=== PATIENT | female | born 1970 | race Caucasian/White ===

== ENCOUNTER → 2016-10-17 | Outpatient (CLI) | payer MEDICARE ==
[~2016-10-17] MED LIST: ALBUTEROL17 GM INH; AUGMENTIN875 MG PO; BICARSIM80 MG PO; COLACE PO; DEPAKOTE PO; DOLOBID500 MG PO; EXCEDRIN EXTRA1 EAC3 PO; EXCEDRIN MIGRAI1 TA2 PO; FLEXERIL10 MG PO; NORCO 10/325 TA1 TAB PO; ORUDIS75 M1 PO; REMERON PO; ROBAXIN PO; SYMBICORT 160/4.6 G1 INH; TRAMADOL HCL50 M2 PO; VISTARIL PO
--- NOTE | ~2016-10-17 | EKG ---
PATIENT: DILCIA WAN UNIT #: [id number] Ventricular Rate: 84 BPM Atrial Rate: 84 BPM P-R Interval: 150 ms QRS Duration: 86 ms Q-T Interval: 372 ms QTC Calculation(Bezet): 439 ms P [place]: 71 degrees Calculated R [place]: 54 degrees Calculated T [place]: 36 degrees Diagnosis Line: Normal sinus rhythm Diagnosis Line: Low voltage QRS Diagnosis Line: Otherwise normal ECG Diagnosis Line: When compared with ECG of 04-JUN-2014 02:38, Diagnosis Line: No significant change was found Diagnosis Line: Confirmed by JOSIANE ROJO MD ([id number]) on 10/20/2016 Diagnosis Line: 10:46:17 PM INTERPRETING MD: ALIA ZEPEDA
[2016-10-17 14:34] LABS: HEMATOCRIT 45.4 % (35.0-45.0); HEMOGLOBIN 15.3 gm/dL (12.0-16.0); MEAN CELL VOLUME 92.3 FL (83-96); MEAN CORPUSCULAR HEMOGLOBIN 31.1 PG (28-34); MEAN CORPUSCULAR HGB CONC 33.7 g/dL (30-36); MEAN PLATELET VOLUME 9.1 FL (6.5-11.5); RED BLOOD COUNT 4.92 X10e (3.90-5.30); RED CELL DISTRIBUTION WIDTH 14.1 % (11.0-15.5); WHITE BLOOD COUNT 4.7 X10e3 (4.0-10.5)
[2016-10-17 15:07] LABS: BUN/CREATININE RATIO 17.14; CALCIUM SERUM 9.4 mg/dL (8.4-10.2); CREATININE SERUM 0.7 mg/dL (0.6-1.4); GLOM FILT RATE Estimated 103.2 mL/min (>60); POTASSIUM 3.6 mmol/L (3.5-5.1)
== END | disposition home or self-care (01) ==
LOC: CAMB 13:03
PROVIDERS: Surgery
DX: Z01.818 Encounter for other preprocedural examination (principal); K43.9 Ventral hernia without obstruction or gangrene
CPT/HCPCS: 36415; 80048; 85027; 93005

== ENCOUNTER → 2016-10-24 | Day surgery (SDC) | payer MEDICARE ==
--- NOTE | ~2016-10-24 | OR ---
Unit #: [id number] #: [id number] Patient: DILCIA WAN [id number] [address] [address] [id number] O MR#: [id number] NAME: DILCIA WAN ROOM: Date of Procedure: 10/24/2016 Admission Date: 10/24/2016 Surgeon: Joel Crisostomo M.D. : 1970 Attending Physician: Joel Crisostomo M.D. Referring Physician: Joel Crisostomo M.D. Primary Care Physician: Primary Care Physician No OPERATIVE REPORT PREOPERATIVE DIAGNOSES 1. Abdominal pain. 2. Diastasis recti. POSTOPERATIVE DIAGNOSIS Diastasis recti. PROCEDURE PERFORMED Diagnostic laparoscopy. ACADEMIC AFFAIRS COORDINATOR Charo. ANESTHESIA General endotracheal anesthesia. ESTIMATED BLOOD LOSS Minimal. IV FLUIDS 500 crystalloid. COMPLICATIONS None. INDICATIONS FOR PROCEDURE The patient is a 45-year-old lady, who presents with a bulge in her epigastric region. She has pain with this. On general physical examination, this appears to be a diastasis. She has had a previous umbilical incision. DESCRIPTION OF PROCEDURE The patient was taken to the operating theater and placed in the supine position. General anesthesia was induced. Her abdomen was prepped and draped. A 5 mm Optiview trocar was placed in the left lower quadrant without difficulty. The abdomen was insufflated to 15 mmHg with CO2. Under direct vision, I placed left lower quadrant 5 mm. General inspection of the abdomen revealed no evidence of hernia at the umbilicus. I saw no evidence of inflammation. There was no fluid in the abdomen. Liver appeared to be normal. I took down the falciform ligament completely with Bovie electrocautery. I examined the anterior abdominal wall. I did not see any fascial defect. Thus, I removed the ports and Unit #: [id number] #: [id number] Patient: DILCIA WAN closed with 4-0 Vicryl. The patient tolerated the recovery room and was sent to the recovery room in good condition. Dictated by... Gage Dominguez/ikerl TD: 10/25/2016 03:46 JOB #: [id number] OPERATIVE REPORT Page 1 of 1 X Joel Crisostomo MD PROCEDURE OPERATIVE NOTE
== END | disposition home or self-care (01) ==
LOC: CSUR 07:14
DX: Q79.59 Other congenital malformations of abdominal wall (principal); J44.9 Chronic obstructive pulmonary disease, unspecified; K21.9 Gastro-esophageal reflux disease without esophagitis; F17.210 Nicotine dependence, cigarettes, uncomplicated; Z88.8 Allergy status to other drugs, medicaments and biological substances; Z90.710 Acquired absence of both cervix and uterus; Z98.890 Other specified postprocedural states
CPT/HCPCS: 82947; J0131; J0330; J0690; J1644; J2250; J2405; J2710; J3010

== ENCOUNTER → 2016-11-05 | Outpatient (CLI) | payer MEDICARE ==
--- NOTE | ~2016-11-05 | NM22 ---
[facility] A Service of [facility] & [facility] RADIOLOGY TEXT RESULTS PATIENT: DILCIA WAN LOCATION: [facility] : [birth year] UNIT #: [id number] AGE: [address]: Joel Crisostomo MD SEX: F ORDER DR: [id number] [facility] [address] [place], [place] [address] [id number] O MR#: [id number] Acc #: [id number] NAME: DILCIA WAN : 1970 SEX: F STUDY DATE/TIME: 11/05/2016 9:23 UNIT: US ROOM: STUDY DESCRIPTION: NM Hepatobiliary W GB Pharm Attending Physician: Joel Crisostomo M.D. Referring Physician: Joel Crisostomo M.D. Ordering Physician: Joel Crisostomo M.D. Primary Care Physician: Dominga Sanchez Aprn MEDICAL IMAGING REPORT This report is preliminary unless electronic signature is present EXAM HIDA scan with Kinevac/CCK, 11/05/2016. HISTORY Right upper quadrant abdominal pain, nausea, constipation, abdominal bloating, and gas, early satiety, abdominal tightness, symptoms for 1 year worsening over the past 3 months. FINDINGS The patient received an intravenous injection of 5.88 mCi of technetium 99m tagged Choletec for hepatobiliary imaging. 1 hour following the injection of the radiopharmaceutical, the patient received an intravenous injection of 2.1 mcg of Kinevac. There is homogeneous distribution of the radiotracer throughout the liver. Gallbladder activity was seen by 15 minutes postinjection of the radiopharmaceutical. Following Kinevac injection, the gallbladder ejection fraction was 86.1% (normal is greater than 30%). IMPRESSION Normal HIDA scan with gallbladder ejection fraction of 86.1%. Dictated by... Rodolfo Menchaca M.D. THIS IS AN ELECTRONICALLY VERIFIED REPORT Rodolfo Menchaca M.D. at 11/06/2016 8:06 AM KRT/grant TD: 11/05/2016 12:11 JOB #: [id number] [facility] A Service of [facility] & [facility] RADIOLOGY TEXT RESULTS PATIENT: DILCIA WAN LOCATION: [facility] #: [id number] : [birth year] UNIT #: [id number] AGE: [address]: Joel Crisostomo MD SEX: F ORDER DR: MEDICAL IMAGING REPORT Page 1 of 1 COPY
--- NOTE | ~2016-11-05 | US6 ---
[facility] A Service of [facility] & [facility] RADIOLOGY TEXT RESULTS PATIENT: DILCIA WAN LOCATION: [facility] : [birth year] UNIT #: [id number] AGE: [address]: Joel Crisostomo MD SEX: F ORDER DR: [id number] [facility] [address] [place], [place] [address] [id number] O MR#: [id number] Acc #: [id number] NAME: DILCIA WAN : 1970 SEX: F STUDY DATE/TIME: 11/05/2016 7:40 UNIT: CGUS ROOM: STUDY DESCRIPTION: US Abdominal Limited Attending Physician: Joel Crisostomo M.D. Referring Physician: Joel Crisostomo M.D. Ordering Physician: Joel Crisostomo M.D. Primary Care Physician: Dominga Sanchez MEDICAL IMAGING REPORT This report is preliminary unless electronic signature is present EXAM Right upper quadrant ultrasound 11/05/2016 HISTORY Right upper quadrant abdominal pain for 1 year radiating from the abdominal midline to the right flank. No known injury. FINDINGS Ultrasound examination of the gallbladder is negative. There is no cholelithiasis, gallbladder wall thickening, or bile duct dilatation. The visualized liver is negative. IMPRESSION Negative gallbladder ultrasound examination. Dictated by... Rodolfo Menchaca M.D. THIS IS AN ELECTRONICALLY VERIFIED REPORT Rodolfo Menchaca M.D. at 11/06/2016 8:06 AM PHI/jass TD: 11/05/2016 10:51 JOB #: [id number] MEDICAL IMAGING REPORT Page 1 of 1 COPY
== END | disposition home or self-care (01) ==
LOC: CGUS 07:08
DX: R10.9 Unspecified abdominal pain (principal); R11.0 Nausea; Z98.890 Other specified postprocedural states
CPT/HCPCS: 76705; 78227; A9537; J2805

== ENCOUNTER → 2016-12-01 | Day surgery (SDC) | payer MEDICARE ==
--- NOTE | ~2016-12-01 | OR ---
Unit #: [id number] #: [id number] Patient: DILCIA WAN [id number] [address] [place], [place] [address] [id number] O MR#: [id number] NAME: DILCIA WAN ROOM: Date of Procedure: 12/01/2016 Admission Date: 12/01/2016 Surgeon: Joel Crisostomo M.D. : 1970 Attending Physician: Joel Crisostomo M.D. Primary Care Physician: Dominga Sanchez OPERATIVE REPORT PREOPERATIVE DIAGNOSIS Abdominal pain. POSTOPERATIVE DIAGNOSES 1. Severe gastritis. 2. Duodenitis. 3. Possible colonic stricture at sigmoid colon. PROCEDURE PERFORMED 1. Esophagogastroduodenoscopy with biopsy for Helicobacter pylori. 2. Sigmoidoscopy. IMPACT HAMMER OPERATOR None. ANESTHESIA IV sedation. COMPLICATIONS None. INDICATIONS FOR PROCEDURE The patient is a 46-year-old with significant left lower quadrant epigastric abdominal pain. She presents for endoscopic evaluation. DESCRIPTION OF PROCEDURE The patient was taken to the operating theater and placed in lateral decubitus position. IV sedation was initiated. EGD scope was passed under direct vision into the esophagus. Esophagus was grossly normal. Stomach showed diffuse gastritis mainly at the antrum. A biopsy was taken for H. pylori. Duodenum showed inflammation also. There were no ulcerations. The patient was repositioned. Digital rectal exam was normal. Colonoscope was then passed under direct vision, navigated to the sigmoid colon. There appeared to be a stricture or tightening. I did not see inflammation and did not see any neoplastic lesions, but I was unable to get the scope passed an area of the sigmoid colon. Thus, I aborted the procedure and plan for air contrast barium enema. PLAN Recommend Colace b.i.d., simethicone t.i.d. Continue on proton pump Unit #: [id number] #: [id number] Patient: DILCIA WAN inhibitors. We will plan for air contrast barium enema. Dictated by... Gage Dominguez/vipin TD: 12/10/2016 22:33 JOB #: [id number] OPERATIVE REPORT Page 1 of 1 X Joel Crisostomo MD PROCEDURE OPERATIVE NOTE
== END | disposition home or self-care (01) ==
LOC: COPS 10:24
DX: K29.50 Unspecified chronic gastritis without bleeding (principal); K29.80 Duodenitis without bleeding; K21.9 Gastro-esophageal reflux disease without esophagitis; J44.9 Chronic obstructive pulmonary disease, unspecified; E78.00 Pure hypercholesterolemia, unspecified; F17.200 Nicotine dependence, unspecified, uncomplicated; Z90.711 Acquired absence of uterus with remaining cervical stump
CPT/HCPCS: 82947; 87077; 88305; 88312; J2250

== ENCOUNTER → 2017-02-02 | Outpatient (CLI) | payer MEDICARE ==
--- NOTE | ~2017-02-02 | CR43 ---
[facility] A Service of [facility] RADIOLOGY TEXT RESULTS PATIENT: DILCIA WAN LOCATION: [facility] : 68 UNIT #: [id number] AGE: [address]: Joel Crisostomo MD SEX: F ORDER DR: [id number] [facility] [address] [place], [place] [address] [id number] O MR#: [id number] Acc #: [id number] NAME: DILCIA WAN : 1970 SEX: F STUDY DATE/TIME: 02/02/2017 9:44 UNIT: [facility] ROOM: STUDY DESCRIPTION: CR Barium Enema W Air Attending Physician: Joel Crisostomo M.D. Referring Physician: Joel Crisostomo M.D. Ordering Physician: Joel Crisostomo M.D. Primary Care Physician: Dominga Sanchez MEDICAL IMAGING REPORT This report is preliminary unless electronic signature is present EXAM Barium enema. INDICATION Incomplete colonoscopy. PROCEDURE Whizzer Operator radiograph obtained. Barium was instilled into the colon via the rectum. Spot images were obtained. The barium was evacuated and air was inflated into the colon. Additional spot images were obtained. Overhead projections were obtained. Total fluoro time 1.5 minutes. 14 fluoroscopic images. COMPARISON None. FINDINGS There are scattered diverticula in the sigmoid colon. There is no evidence for stricture or obstruction. Contrast reaches the cecum. The appendix is opacified. No visible intraluminal filling defect. IMPRESSION Scattered sigmoid diverticula. No evidence for stricture or obstruction or visible intraluminal filling defect. Dictated by... Yuri Berrios M.D. THIS IS AN ELECTRONICALLY VERIFIED REPORT Yuri Berrios M.D. at 02/03/2017 7:13 AM EED/bd TD: 02/03/2017 06:17 [facility] A Service of [facility] RADIOLOGY TEXT RESULTS PATIENT: DILCIA WAN LOCATION: [facility] : [birth year] UNIT #: [id number] AGE: [address]: Joel Crisostomo MD SEX: F ORDER DR: JOB #: [id number] MEDICAL IMAGING REPORT Page 1 of 1 COPY
== END | disposition home or self-care (01) ==
LOC: CRAD 08:52
DX: R10.13 Epigastric pain (principal); K57.30 Diverticulosis of large intestine without perforation or abscess without bleeding
CPT/HCPCS: 74280